=== PATIENT | female | born 1955 | race Caucasian/White ===

== ENCOUNTER 2021-12-28 08:06 | Day surgery (SDC) | payer MEDICARE ==
[2021-12-27 08:29] VITALS: BMI 20.3
[2021-12-28 08:33] VITALS: TEMP 98.7
[2021-12-28] MEDS: LACTATED RINGERS 1,000 ML IV SCH ×2 (08:45→09:25)
[2021-12-28] MEDS ORDERED: PROPOFOL 10 MG/ML 20 ML VIAL IV ONE (09:27)
--- NOTE | 2021-12-28 09:47 | P.PCN ---
Date of Procedure: 12/28/21 Procedure(s) Performed: BRIEF HISTORY: Patient is a 66-year-old pleasant female scheduled for an elective colonoscopy as a part of evaluation of intermittent rectal bleeding. She has strong family history of colon cancer diagnosed in her brother at age 52 and in dad at age 60. PROCEDURE PERFORMED: Colonoscopy with biopsy. PREOPERATIVE DIAGNOSIS: Rectal bleeding and family history of colon cancer. IV sedation per Anesthesia. PROCEDURE: After informed consent was obtained, the patient, was brought into the endoscopy unit. IV sedation was administered by Anesthesia under continuous monitoring. Digital rectal examination was normal. Initially the Olympus CF-160 flexible video colonoscope was then inserted in the rectum, gradually advanced into the cecum without any difficulty. Careful examination was performed as the scope was gradually being withdrawn. Ileocecal valve and the appendiceal orifice were visualized and appeared normal. Prep was excellent. Mucosa of the cecum, appeared normal. Ascending colon there was a 3-4 mm sessile polyp that was removed by cold biopsy. Rest of the ascending colon, transverse colon, descending colon, sigmoid colon, and rectum appeared normal. Retroflexion was performed in the rectum and all internal hemorrhoids were seen. The patient tolerated the procedure well. IMPRESSION: 3-4 mm sessile ascending colon polyp status post cold biopsy Small internal hemorrhoids RECOMMENDATIONS: Findings of this examination were discussed with the patient as well as her family. She was advised to follow with the biopsy results. Recommend a repeat screening colonoscopy in 5 years from now because of the strong family history of colon cancer..
[2021-12-28 10:09] VITALS: BP 110/65; PULSE 76; RESP 16
== END 2021-12-28 10:22 | disposition home or self-care (01) ==
LOC: ORWHC2ENDO 08:06
PROVIDERS: ATTEND Internal Medicine Gastroenterology
DX: D12.2 Benign neoplasm of ascending colon (principal); K64.8 Other hemorrhoids; K62.5 Hemorrhage of anus and rectum; Z80.0 Family history of malignant neoplasm of digestive organs
CPT/HCPCS: 88305; 45380; J2704